=== PATIENT | female | born 1995 | race Hispanic/Latino ===

== ENCOUNTER 2017-10-03 20:43 | Observation (INO) | payer OTHER, SELFPAY ==
--- OUTSIDE RECORDS SUMMARY | 2017-10-03 20:45 | XMS REPORT | Clinical Summary ---
:1995 Author Organization [employer] Address [address] [place] [address] Care Team Providers Name Role Phone Asked, No Pcp Primary Care Provider Unavailable Allergies No Known Allergies Current Medications No known medications Active Problems Problem Noted Date Adjustment disorder with depressed mood 07/27/2016 Social History Tobacco Use Types Packs/Day Years Used Date Never Assessed Sex Assigned at Date Recorded Not on file Last Filed Vital Signs Not on file Plan of Treatment Not on file Results Not on fileafter 10/02/2016 Insurance Payer Benefit Plan / Group Subscriber ID Type Phone Address MEDICAID MEDICAID xxxxxxxxx Medicaid Home: [address] [phone] [place], [place] [id number]
[2017-10-03 21:19] LABS: Absolute Neutrophil 7.2 K/uL (1.8-8.0); Basophils % 0.9 % (0-1.3); Eosinophils % 3.8 % (0-4.4); Hematocrit 34.4 % (36.0-45.0); Lymphocytes % 25.7 % (15.3-44.8); MCH 27.7 pg (27.0-35.0); MCV 81.5 fL (80-100); MPV 9.3 fL (7.6-11.3); Monocytes % 8.8 % (3.3-12.3); RBC Red Blood Cell Count 4.22 M/uL (3.86-4.86)
[2017-10-03 21:24] LABS: Urine Blood 3+ (NEG); Urine Glucose NEGATIVE (NEG); Urine Protein NEGATIVE (NEG); Urine pH 6.5 (5.0-7.0)
[2017-10-03 21:29] LABS: Urine Bacteria <20 /HPF (<20); Urine Culture Reflex Order REFLEXED
--- NOTE | 2017-10-03 21:45 | RAD REPORT ---
EXAM DESCRIPTION: US - OB Limited - 10/03/2017 9:28 pm CLINICAL HISTORY: Vaginal bleeding, positive Preliminary findings provided at the time of the study. COMPARISON: No relevant comparison FINDINGS: An intrauterine gestational sac is present slightly irregular in configuration. pole is identified. The crown-rump length corresponds to a 10 week 2 day age. No gross anatomic abnormali ty is seen. However, prolonged sonographic evaluation failed to identify any cardiac activity. No hem atoma or mass within the uterus. No suspicious ovarian or adnexal finding. No blood or free fluid in the cul-de-sac. IMPRESSION: Intrauterine demise. pole is 10 week 2 day size. No mass or hematoma within the uterus.
[2017-10-03 21:54] LABS: BUN Blood Urea Nitrogen 9 mg/dL (7-18); Bicarbonate 26 mmol/L (21-32); Glucose Level 78 mg/dL (74-106); HCG, Quantitative 5953 mIU/mL (1-3); Potassium 3.5 mmol/L (3.5-5.1); Sodium Level 138 mmol/L (136-145)
--- NOTE | 2017-10-03 22:22 | ER ---
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 pt c/o heavy ak1 bleeding with clots started this morning. 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 Transition of care: patient was not received from another setting of care. Onset of symptoms is unknown. Risk Assessment: Do you want to hurt yourself or someone else? Patient reports no desire to harm self or others. Initial Sepsis Screen: Does the patient meet any 2 criteria? No. Patient's initial sepsis screen is negative. Does the patient have a suspected source of infection? No. Patient's initial sepsis screen is negative. 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 Magallon, pt has not seen him yet. Care prior to arrival: None. 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 - Social history:: Smoking status: Patient/guardian denies using tobacco. - Ebola Screening: : No symptoms or risks identified at this time. - Family history:: not pertinent. - Hospitalizations: : No recent hospitalization is reported. Screenin:54 Abuse screen: Denies threats or abuse. Denies injuries from another. Nutritional ak1 screening: No deficits noted. Tuberculosis screening: No symptoms or risk factors identified. Fall Risk None identified. Assessment: 21:00 General: Appears in no apparent distress. comfortable, Behavior is calm, cooperative, aa1 appropriate for age. Pain: Complains of pain in suprapubic area Quality of pain is described as crampy. Neuro: Level of Consciousness is awake, alert, obeys commands, Oriented to person, place, time, situation, Moves all extremities. Full function Gait is steady. Respiratory: Airway is patent Respiratory effort is even, unlabored, Respiratory pattern is regular, symmetrical. GI: No signs and/or symptoms were reported involving the gastrointestinal system. : Reports cramping, vaginal bleeding that is with clots. EENT: No signs and/or symptoms were reported regarding the EENT system. Derm: Skin is intact, is healthy with good turgor. Musculoskeletal: Circulation, motion, and sensation intact. Capillary refill < 3 seconds. 22:26 Reassessment: Patient appears in no apparent distress at this time. Patient and/or aa1 family updated on plan of care and expected duration. Pain level reassessed. Patient is alert, oriented x 3, equal unlabored respirations, skin warm/dry/pink. Pt awaiting consult from Dr. Phelan. 23:44 Reassessment: Patient appears in no apparent distress at this time. Patient is alert, aa1 oriented x 3, equal unlabored respirations, skin warm/dry/pink. Discussed d/c \T\ f/u instructions with pt; denies questions or concerns at this time. Vital Signs: 20:53 BP 137 / 83; Pulse 71; Resp 18; Temp 98.2; Pulse Ox 97% on R/A; Weight 54.43 kg (R); ak1 Height 5 ft. 0 in. (152.40 cm) (R); Pain 4/10; 22:26 BP 108 / 89; Pulse 64; Resp 16; Pulse Ox 100% on R/A; aa1 23:44 BP 126 / 80; Pulse 66; Resp 16; Pulse Ox 99% on R/A; aa1 20:53 Body Mass Index 23.44 (54.43 kg, 152.40 cm) ak1 ED Course: 20:47 Patient arrived in ED. al2 20:47 Domenic Magallon MD is Private Physician. al2 20:53 Triage completed. ak1 20:53 Arm band placed on Patient placed in an exam room, on a stretcher, Patient notified of ak1 wait time. 20:54 Patient has correct armband on for positive identification. Placed in gown. Bed in low ak1 position. Call light in reach. Side rails up X 1. Adult w/ patient. 20:55 Juanito Freeman MD is Attending Physician. rn 20:58 Leeanne Obregon RN is Primary Nurse. aa1 21:00 Initial lab(s) drawn, by me, sent to lab. Urine collected: clean catch specimen, aa1 cloudy. Inserted saline lock: 20 gauge in right antecubital area, using aseptic technique. Blood collected. 21:28 US OB Limited In Process Unspecified. EDMS 22:05 Assist provider with pelvic exam: Performed by Juanito Freeman MD Patient tolerated well. ak1 manual exam only. 22:21 Shalini Phelan MD is Hospitalizing Provider. rn 22:58 Domenic Magallon MD is Referral Physician. rn 23:44 IV discontinued, intact, bleeding controlled, No redness/swelling at site. Pressure aa1 dressing applied. Administered Medications: 23:44 Drug: Cytotec 400 mcg Route: PO; aa1 23:44 Follow up: Response: Medication administered at discharge. aa1 Outcome: 22:21 Decision to Hospitalize by Provider. rn 22:59 Discharge ordered by . rn 23:44 Discharged to home ambulatory, with significant other. aa1 23:44 Condition: good 23:44 Discharge instructions given to patient, significant other, Instructed on discharge instructions, follow up and referral plans. Demonstrated understanding of instructions, follow-up care. 23:46 Patient left the ED. aa1 Signatures: Dispatcher [employer] EDMS Leeanne Obregon, RN RN aa1 Juanito Freeman MD MD rn Krenek, Amber RN RN [email or web address] Shanta Berumen2
--- NOTE | 2017-10-03 22:22 | EDPHYS ---
Physician Documentation [facility] Name: Danita Drummond Age: 21 yrs Sex: Female : 1995 Arrival Date: 10/03/2017 Time: 20:47 Bed 13 Private MD: Domenic Magallon B ED Physician Juanito Freeman HPI: 10/03 21:52 This 21 yrs old Female presents to ER via Ambulatory with complaints of 19 rn WEEKS PREG VAGINAL BLEEDING,CRAMPING. 21:52 The patient presents to the emergency department with abdominal pain, of the suprapubic rn area, that started 4 day(s) ago, described as crampy, vaginal bleeding, that is moderate, with clots. The estimated gestational age is 19 weeks. course: care: none, Leakage of Fluid: none appreciated, Ultrasound: the patient has not had an ultrasound, Risk/complications: no obvious risks or complications are appreciated. Previous pregnancies: in previous pregnancies patient has had vaginal delivery. The patient has not experienced similar symptoms in the past. Reports base on LMP 19 weeks preg, noticed vaginal bleeding with clots and abd cramping for 4 days, , no trauma, no urinary symptoms. . 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 - Social history:: Smoking status: Patient/guardian denies using tobacco. - Ebola Screening: : No symptoms or risks identified at this time. - Family history:: not pertinent. - Hospitalizations: : No recent hospitalization is reported. ROS: 21:52 Constitutional: Negative for fever, chills, and weight loss, Eyes: Negative for injury, rn pain, redness, and discharge, Cardiovascular: Negative for chest pain, palpitations, and edema, Respiratory: Negative for shortness of breath, cough, wheezing, and pleuritic chest pain, Abdomen/GI: + abd carmping, no vomiting/diarrhea Back: Negative for injury and pain, MS/Extremity: Negative for injury and deformity, Skin: Negative for injury, rash, and discoloration, Neuro: Negative for headache, weakness, numbness, tingling, and seizure. Exam: 21:52 Constitutional: This is a well developed, well nourished patient who is awake, alert, rn and in no acute distress. Abdomen/GI: soft, mild lower abd tenderness, no rebound Pelvic Exam: Normal external genitalia. Minimal amount of blood in vault, os open only approx 1-2 cm. MS/ Extremity: Pulses equal, no cyanosis. Neurovascular intact. Full, normal range of motion. Equal circumference. Neuro: Awake and alert, GCS 15, oriented to person, place, time, and situation. Cranial nerves II-XII grossly intact. Motor strength 5/5 in all extremities. Sensory grossly intact. Cerebellar exam normal. Normal gait. Vital Signs: 20:53 BP 137 / 83; Pulse 71; Resp 18; Temp 98.2; Pulse Ox 97% on R/A; Weight 54.43 kg (R); ak1 Height 5 ft. 0 in. (152.40 cm) (R); Pain 4/10; 22:26 BP 108 / 89; Pulse 64; Resp 16; Pulse Ox 100% on R/A; aa1 23:44 BP 126 / 80; Pulse 66; Resp 16; Pulse Ox 99% on R/A; aa1 20:53 Body Mass Index 23.44 (54.43 kg, 152.40 cm) ak1 MDM: 20:55 Patient medically screened. rn 22:13 ED course: Consulted Dr. Phelan, regarding likely need for D\T\C given intrauterine rn demise and cervical os 1-2 cm. No sign of infection at this time.. 22:20 Differential diagnosis: missed , demise. Data reviewed: vital signs, rn nurses notes, lab test result(s), radiologic studies, ultrasound, and as a result, I will admit patient. Counseling: I had a detailed discussion with the patient and/or guardian regarding: the historical points, exam findings, and any diagnostic results supporting the discharge/admit diagnosis, lab results, radiology results, the need for further work-up and treatment in the hospital. 22:57 ED course: Dr. Phelan evaluated patient in ER, patient changed their mind, doesn't want document review attorney, wants to go home with trial of passage. . 10/03 20:56 Order name: Quantitative Hcg; Complete Time: 21:58 rn 10/03 20:56 Order name: Abo/rh Typing; Complete Time: 22:07 rn 10/03 20:56 Order name: Basic Metabolic Panel; Complete Time: 21:58 rn 10/03 20:56 Order name: CBC with Diff; Complete Time: 21:46 rn 10/03 20:56 Order name: Urine Microscopic Only; Complete Time: 21:46 rn 10/03 21:19 Order name: Urine Dipstick--Ancillary (enter results); Complete Time: 21:46 ms 10/03 20:56 Order name: IV Saline Lock; Complete Time: 21:13 rn 10/03 20:56 Order name: Labs collected and sent; Complete Time: 21:13 rn 10/03 20:56 Order name: NPO; Complete Time: 20:59 rn 10/03 20:56 Order name: Urine Dipstick-Ancillary (obtain specimen); Complete Time: 21:13 rn 10/03 20:56 Order name: US OB Limited; Complete Time: 21:46 rn 10/03 21:19 Order name: Urine --Ancillary (enter results); Complete Time: 21:46 ms 10/03 21:30 Order name: Urine Culture EDMS Administered Medications: 23:44 Drug: Cytotec 400 mcg Route: PO; aa1 23:44 Follow up: Response: Medication administered at discharge. aa1 Disposition: 10/03/17 22:59 Discharged to Home. Impression: Missed . - Condition is Stable. - Medication Reconciliation Form, Thank You Letter, Antibiotic Education, Prescription Opioid Use form. - Follow up: Domenic Magallon MD; When: 2 - 3 days; Reason: Recheck today's complaints, Continuance of care, Re-evaluation by your physician. - Problem is new. - Symptoms are unchanged. Signatures: Dispatcher [employer] EDMS Pam Moseley RN RN mw Kern, Alissa RN RN aa1 Juanito Freeman MD MD rn Krenek, Amber, RN RN ak1 Corrections: (The following items were deleted from the chart) 22:21 21:52 Constitutional: This is a well developed, well nourished patient who is awake, rn alert, and in no acute distress. Abdomen/GI: soft, mild lower abd tenderness, no rebound MS/ Extremity: Pulses equal, no cyanosis. Neurovascular intact. Full, normal range of motion. Equal circumference. Neuro: Awake and alert, GCS 15, oriented to person, place, time, and situation. Cranial nerves II-XII grossly intact. Motor strength 5/5 in all extremities. Sensory grossly intact. Cerebellar exam normal. Normal gait. rn 22:27 22:21 Hospitalization Ordered by Shalini Phelan MD for Observation. Preliminary diagnosis mw is Missed ; Demise. [facility]. Status is Observation. Condition is Stable. Problem is an ongoing problem. Symptoms are unchanged. UTI on Admission? No. rn 22:58 22:27 10/03/2017 22:21 Hospitalization Ordered by Shalini Phelan MD for Observation. rn Preliminary diagnosis is Missed ; Demise. Bed requested for [facility]. Status is Observation. Condition is Stable. Problem is an ongoing problem. Symptoms are unchanged. UTI on Admission? No. mw 23:46 22:59 10/03/2017 22:59 Discharged to Home. Impression: Missed . Condition is aa1 Stable. Forms are Medication Reconciliation Form, Thank You Letter, Antibiotic Education, Prescription Opioid Use. Follow up: Domenic Magallon; When: 2 - 3 days; Reason: Recheck today's complaints, Continuance of care, Re-evaluation by your physician. Problem is new. Symptoms are unchanged. rn
[2017-10-03] MEDS ORDERED: miSOPROStol 100 MCG TAB ONE (23:17)
[2017-10-03 23:52] VITALS: TEMP 98.2
[2017-10-03 23:55] VITALS: BP 126/80; O2SAT 99
--- NOTE | 2017-10-04 03:01 | CON ---
History Of Present Illness: Danita is a 21-year-old, 3, para 2-0-0-2, LMP 05/22/2017, whic lydia would make her 19 weeks and 2 days gestation, who presents to the emergency room with vaginal bleed ing that began about a week ago and presented with some blood clots this morning. She also started h aving abdominal cramps about an hour ago, that is the time when she called Labor and Delivery, asking for advice as to what to do and was recommended to come to the emergency room. The patient states t hat her prior pregnancies have been managed by Dr. Magallon; however, she has not seen him yet for this . She states it is due to some insurance issues. I have notified Dr. Magallon. The patient s tates aside from the bleeding and the cramps that she has no other issues. She denies fevers or chil ls. No shortness of breath. No headache. No dizziness. She is overall feeling well. 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 Past Medical History: Negative. Medications: She is not taking any medications. Past Surgical History: Two prior vaginal births. Family History: Noncontributory. Review of Systems: Constitutional: Negative for fever, chills, or weight loss. No visual changes. Cardiovascular: No chest pains or palpitation. Respiratory: No shortness of breath, cough, or wheezing. Abdomen: Terese vasquez has some cramping. No vomiting or diarrhea. Musculoskeletal: No issues. Skin: No rashes or inj ury. Neurologic: No headaches, weakness, numbness, or dizziness. Physical Examination: Vital Signs: Blood pressure is 108/89, pulse of 64, respirations 16, pulse O2 is 100%. She is afebr ile. Temperature of 98.2. BMI is 23.4. General: Resting comfortably in bed. She is distressed due to the news of having a miscarriage. Head and Neck: Normocephalic and atraumatic. Heart: Regular rate. Respiratory: Symmetric nonlabored breathing. Abdomen: Soft, nontender, nondistended. Extremities: Bilateral lower extremities, no clubbing, cyanosis, or edema. Vaginal Exam: Normal external female genitalia. Vagina is pink, moist, normal rugae. Cervix is pat sed. There is some minimal amount of blood noted in the cervical os with some mucus. Uterus is nont abdias. Adnexa, no palpable adnexal masses. Imaging Data: A transvaginal ultrasound has been performed. Findings indicated intrauterine gestati onal sac measuring 10 weeks and 2 days. No heart rate visible corresponding to an intrauterine demise. No adnexal masses. Laboratory Findings: White blood cell count is 11.9, hemoglobin is 11.7, hematocrit 34.4, platelet c ount is 287. hCG is 5953. Urine is negative for nitrites. Assessment And Plan: Danita is a 21-year-old 3, para 2-0-0-2, who presents with a spontane ous . The patient states that at this time she does not desire surgical intervention. She d eclines having a D and C performed. She would like expected management. I offered her the option to have a dose of misoprostol while she is here at the hospital to help assist with miscarriage and the patient states that she would like to do this. The patient was given the precautions to return in [facility] emergency room for severe bleeding or fevers or chills. She [facility] also [facility] a followup visit to have a repeat ultrasound performed in the office in 1-2 weeks to confirm completion of miscarriage. If she has any other issues, she is to notify the [facility] ency room. SULEMAN Voice ID: [id number] Report ID: [id number]
== END 2017-10-03 23:00 | disposition home or self-care (01) ==
LOC: ER 20:43 → ERHOLD 22:29
PROVIDERS: ADMIT Student in an Organized Health Care Education/Training Program; ATTEND Student in an Organized Health Care Education/Training Program
DX: O03.9 Complete or unspecified spontaneous abortion without complication (principal)
CPT/HCPCS: 36415; 76815; 80048; 81003; 81015; 81025; 84702; 85025; 86900; 86901; 87086; 87088; 99284; G0378

== ENCOUNTER 2018-09-28 23:37 | Inpatient (IN) | payer OTHER ==
--- OUTSIDE RECORDS SUMMARY | 2018-09-28 23:40 | XMS REPORT | Clinical Summary ---
:1995 Author Organization [employer] Address [address] [place] [address] Care Team Providers Name Role Phone Asked, No Pcp Primary Care Provider Unavailable Allergies No Known Allergies Medications No known medications Active Problems Problem Noted Date Adjustment disorder with depressed mood 07/27/2016 Social History Tobacco Use Types Packs/Day Years Used Date Never Assessed Sex Assigned at Date Recorded Not on file Job Start Date Occupation Industry Not on file Not on file Not on file Travel History Travel Start Travel End No recent travel history available. Last Filed Vital Signs Not on file Plan of Treatment Not on file Results Not on fileafter 09/27/2017 Advance Directives Patient has advance care planning documents, and code status on file. For more information, please contact:[id number] [place] [address] Code Status Date Activated Date Inactivated Comments Full Code 07/27/2016 2:48 PM 07/28/2016 4:54 PM Code Status decision reached by: Patient
[2018-09-28] MEDS ORDERED: Ringers Lactate 1,000 ML IV SCH (23:45)
[2018-09-28] MEDS ORDERED: PENICILLIN 5 MU in NA CHLORIDE 0.9% 100 ML IV ONE (23:54)
[2018-09-28] MEDS ORDERED: METHYLERGONOVINE 0.2MG/ML AMP IM PRN (23:54)
[2018-09-28] MEDS ORDERED: PROMETHAZINE 25 MG/ML VIAL IM PRN (23:54)
[2018-09-28] MEDS ORDERED: Ringers Lactate 1,000 ML IV PRN (23:54)
[2018-09-28] MEDS ORDERED: BUTORPHANOL 1 MG/ML INJ IV PRN (23:54)
[2018-09-29 00:59] LABS: RPR Titer ND
[2018-09-29] MEDS ORDERED: ROPIVACAINE HCL 100 ML IV PRN (00:59)
[2018-09-29] MEDS ORDERED: FENTANYL CITR 100 MCG/2 ML IV ONE (00:59)
[2018-09-29] MEDS ORDERED: OXYTOCIN/LR 20 UNIT/1,000 ML BAG IV SCH ×2 (01:00→03:00)
[2018-09-29] MEDS ORDERED: ROPIVACAINE HCL 0.2% 20ML AMP IV ONE (01:00)
[2018-09-29 01:02] LABS: Absolute Lymphocytes (CBC) 2.5 K/uL (0.7-4.9); Basophils % 0.9 % (0-1.3); Eosinophils % 1.3 % (0-4.4); Hematocrit 28.7 % (36.0-45.0); MPV 9.4 fL (7.6-11.3); Monocytes % 7.7 % (3.3-12.3); RBC Red Blood Cell Count 3.73 M/uL (3.86-4.86)
[2018-09-29] MEDS ORDERED: LIDOCAINE 1% MPF 30 ML VIAL ONE (01:42)
[2018-09-29] MEDS ORDERED: ACETAMINOPHEN 500 MG TAB PO PRN (02:41)
[2018-09-29] MEDS ORDERED: METHYLERGONOVINE 0.2 MG TAB PO PRN (02:41)
--- NOTE | 2018-09-29 02:52 | PREOPHP ---
Date of Admission: 09/28/2018 This is a 22-year-old 3, para 2, at 37 weeks in 1 or 2 days, not seen until late in the pregn ariel. Ultrasound was done at 35 weeks and 5 days, very answered and I think the patient is further a long. She usually delivers at 38 weeks. Came in active labor, received 1 dose of 5 million units of penicillin as she was not sure of her beta strep status, even know the records show that she was pos itive for beta strep. Vital signs all stable. Went rapidly to complete. Requested epidural, but pr ecipitously delivered of a term female, Apgars 9 and 9. Right labia minora through and through lacer ation sutured with 2-0 chromic after local infiltration. One [id number] stitch in the left labi a minora. Schultze delivery of the placenta, which inspected and noted to be intact and normal, 350- 400 cc blood loss. Uterus contracted down well with IV drip Pitocin. Final Diagnoses: Term intrauterine , suspected to be 38 weeks plus. Vaginal delivery. Pen icillin prophylaxis. DARRICK/CJ Voice ID: [id number]
[2018-09-29 06:44] VITALS: BMI 25.2
[2018-09-29] MEDS: IBUPROFEN 200 MG TAB PO PRN ×2 (12:23→23:30)
[2018-09-29] MEDS: Oxycodone HCl/Acetaminophen 1 TAB TAB PO PRN (18:57)
[2018-09-29 22:18] LABS: RPR (Rapid Plasma Reagin) NON-REACT (NON-REACT)
[2018-09-30] MEDS: Oxycodone HCl/Acetaminophen 1 TAB TAB PO PRN (06:48)
[2018-09-30] MEDS ORDERED: Tdap (Diph,Pertuss(Acell),Tet Vac) 0.5 ML SYR IMVAC ONE (07:57)
[2018-09-30 09:15] VITALS: BP 115/68; TEMP 97.9
[2018-10-02 03:18] LABS: HBsAG Nonreactive (Nonreactive)
--- NOTE | 2018-10-04 17:39 | OP ---
Surgeon: Domenic Magallon MD A 22-year-old 3, para 2, at 37 weeks 1 day, came in active labor. She was given penicillin p rophylaxis. Went rapidly to complete, precipitous delivery of a term female, Apgars 9 and 9. Small right labia laceration through and through repaired with 2-0 chromic after local infiltration. One f [id number] stitch in the left labia minora. Schultze delivery of the placenta, inspected and not ed to be intact. 350 cc blood loss. Uterus contracted down well with IV drip Pitocin. The patient tolerated all procedures well. Final Diagnoses: Term intrauterine 37-38 weeks, vaginal delivery, penicillin prophylaxis. DARRICK/CJ Voice ID: [id number] Report ID: [id number]
== END 2018-09-30 09:00 | disposition home or self-care (01) | DRG 807 ==
LOC: L&D 23:37 → 2ND-WC 23:58
PROVIDERS: ADMIT Specialist; ATTEND Specialist
PROC: 10E0XZZ Delivery of Products of Conception, External Approach (ICD-10-PCS; principal; 2018-09-28)
PROC: 0UQMXZZ Repair Vulva, External Approach (ICD-10-PCS; 2018-09-28)
DX: O70.0 First degree perineal laceration during delivery (principal); Z37.0 Single live birth; O99.824 Streptococcus B carrier state complicating childbirth; Z3A.37 37 weeks gestation of pregnancy
CPT/HCPCS: 36415; 85025; 86592; 86901; 87340; 90471; 90715; J0595; J2550; J2590

== ENCOUNTER 2020-02-02 09:14 | Emergency (ER) | payer SELFPAY, OTHER ==
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
[2020-02-02 12:21] VITALS: BP 104/58; TEMP 99; O2SAT 99
== END 2020-02-02 12:10 | disposition home or self-care (01) ==
LOC: ER 09:14
DX: S00.90XA Unspecified superficial injury of unspecified part of head, initial encounter (principal); S70.02XA Contusion of left hip, initial encounter; S80.02XA Contusion of left knee, initial encounter; S40.012A Contusion of left shoulder, initial encounter; S00.33XA Contusion of nose, initial encounter; S20.229A Contusion of unspecified back wall of thorax, initial encounter; Y04.2XXA Assault by strike against or bumped into by another person, initial encounter; Y93.9 Activity, unspecified; Y92.009 Unspecified place in unspecified non-institutional (private) residence as the place of occurrence of the external cause
CPT/HCPCS: 70450; 70486; 71046; 72125; 76377; 99284

== ENCOUNTER 2020-10-22 14:37 | Emergency (ER) | payer OTHER, SELFPAY ==
--- NOTE | 2020-10-22 15:58 | ER ---
Nurse's Notes [facility] Name: Danita Drummond Age: 24 yrs Sex: Female : 1995 Arrival Date: 10/22/2020 Time: 14:40 Bed Waiting Private MD: Diagnosis: ED Course: 10/22 14:40 Patient arrived in ED. mr 14:50 Patient's name was called from ER lobby. No response. aa5 15:15 Patient's name was called from ER lobby. No response. aa5 15:35 Patient's name was called from ER lobby. No response. aa5 15:57 Ashok Goetz MD is Attending Physician. aa5 Administered Medications: No medications were administered Outcome: 15:57 Patient left the ED. aa5 Signatures: Noemi DelunaderonSoila, RN RN aa5
== END 2020-10-22 15:57 | disposition left against medical advice (07) ==
LOC: ER 14:37
DX: Z02.9 Encounter for administrative examinations, unspecified (principal)

== ENCOUNTER 2020-10-25 05:43 | Emergency (ER) | payer SELFPAY ==
[2020-10-25 05:59] LABS: Urine Blood Negative (Negative); Urine Glucose Negative (Negative); Urine Protein Negative (Negative); Urine Specific Gravity 1.025 (1.005-1.030); Urine pH 5.5 (5.0-7.0)
[2020-10-25 06:10] LABS: Urine Specific Gravity/Preg 1.025 (1.005-1.030)
[2020-10-25 06:21] LABS: Absolute Lymphocytes (CBC) 1.8 K/uL (0.7-4.9); Hematocrit 36.7 % (36.0-45.0); Lymphocytes % 21.8 % (15.3-44.8); MPV 8.8 fL (7.6-11.3); RBC Red Blood Cell Count 4.11 M/uL (3.86-4.86)
[2020-10-25 06:36] LABS: ALT/SGPT 20 U/L (12-78); AST/SGOT 13 U/L (15-37); Alkaline Phosphatase 68 U/L (45-117); BUN Blood Urea Nitrogen 12 mg/dL (7-18); Bicarbonate 26 mmol/L (21-32); Bilirubin Direct 0.2 mg/dL (0-0.2); Bilirubin Total 0.5 mg/dL (0.2-1.0); Glucose Level 99 mg/dL (74-106); Lipase 53 U/L (73-393); Potassium 3.9 mmol/L (3.5-5.1); Protein, Total 7.2 g/dL (6.4-8.2); Sodium Level 140 mmol/L (136-145)
--- NOTE | 2020-10-25 07:34 | RAD REPORT ---
EXAM DESCRIPTION: CTAbdomen Pelvis W Contrast - 10/25/2020 6:51 am CLINICAL HISTORY: Abdominal pain. ABD PAIN COMPARISON: No comparisons TECHNIQUE: Biphasic CT imaging of the abdomen and pelvis was performed with 100 ml non-ionic IV cont rast. All CT scans are performed using dose optimization technique as appropriate and may include automated exposure control or mA/KV adjustment according to patient size. FINDINGS: The lung bases are clear. The liver, spleen, pancreas, adrenal glands and kidneys are within normal limits. No bowel obstruction, free air, free fluid or abscess. Mild thickening of the wall with colon noted. The appendix is normal. No evidence of significant lymphadenopathy. No suspicious bony findings. IMPRESSION: A mild generalized colitis pattern is suspected.
[2020-10-25] MEDS ORDERED: NA CHLORIDE 0.9% 1,000 ML ONE (07:48)
--- NOTE | 2020-10-25 08:03 | EDPHYS ---
Physician Documentation [facility] Name: Danita Drummond Age: 24 yrs Sex: Female : 1995 Arrival Date: 10/25/2020 Time: 05:47 Bed 5 Private MD: ED Physician Jacky Luu HPI: 10/25 06:37 This 24 yrs old Female presents to ER via Ambulatory with complaints of pm1 Diarrhea, Vomiting, Nausea. 06:37 The patient presents to the emergency department with vomiting, 3 times since the onset pm1 of symptoms, resolved 2 days ago, diarrhea, 2 times since the onset of symptoms, abdominal pain, of the right upper quadrant and left upper quadrant, described as crampy, and does not radiate. Onset: The symptoms/episode began/occurred 3 day(s) ago. Possible causes: unknown. The symptoms are aggravated by nothing. The symptoms are alleviated by nothing. Associated signs and symptoms: Pertinent positives: Sore throat resolved 2 days ago, Pertinent negatives: dysuria, fever. Severity of symptoms: in the emergency department the symptoms are unchanged sore throat, n/v resolved, but diarrhea and feeling dehydrated continued. The patient has not experienced similar symptoms in the past. The patient has not recently seen a physician. Historical: - Allergies: 05:54 No Known Allergies; em - PMHx: 05:54 None; em - PSHx: 05:54 None; em - Immunization history:: Adult Immunizations up to date. - Social history:: Smoking status: Patient denies any tobacco usage or history of. ROS: 06:37 Constitutional: Negative for fever, chills, and weight loss. pm1 06:37 Cardiovascular: Negative for chest pain, palpitations, and edema, Respiratory: Negative for shortness of breath, cough, wheezing, and pleuritic chest pain. 06:37 Back: Negative for injury and pain, : Negative for injury, bleeding, discharge, and swelling, MS/Extremity: Negative for injury and deformity, Skin: Negative for injury, rash, and discoloration, Neuro: Negative for headache, weakness, numbness, tingling, and seizure. 06:37 ENT: Positive for sore throat, resolved, Negative for ear pain. 06:37 Abdomen/GI: Positive for abdominal pain, diarrhea, Negative for nausea and vomiting. 06:37 All other systems are negative. Exam: 06:37 Constitutional: This is a well developed, well nourished patient who is awake, alert, pm1 and in no acute distress. Head/Face: Normocephalic, atraumatic. 06:37 Back: No spinal tenderness. No costovertebral tenderness. Full range of motion. Skin: Warm, dry with normal turgor. Normal color with no rashes, no lesions, and no evidence of cellulitis. MS/ Extremity: Pulses equal, no cyanosis. Neurovascular intact. Full, normal range of motion. 06:37 Eyes: Exam is negative for acute changes, Extraocular movements: no acute changes, Conjunctiva: no acute changes, no injection, Sclera: no acute changes, icterus, is not appreciated. 06:37 ENT: Mouth: Lips: normal, Oral mucosa: normal, pink and intact, moist. 06:37 Cardiovascular: Rate: normal, Rhythm: regular, Pulses: no pulse deficits are appreciated, Heart sounds: normal, normal S1and S2. 06:37 Respiratory: Exam negative for acute changes, respiratory distress, shortness of breath, Breath sounds: are clear throughout. 06:37 Abdomen/GI: Inspection: abdomen appears normal, Palpation: abdomen is soft and non-tender, in all quadrants. 06:37 Neuro: Exam negative for acute changes, Orientation: is normal, Mentation: is normal, Motor: is normal, moves all fours. Vital Signs: 05:59 BP 122 / 73; Pulse 72; Resp 16; Temp 97.7; Pulse Ox 99% on R/A; Weight 54.43 kg; Height em 5 ft. 0 in. (152.40 cm); Pain 7/10; 06:57 BP 108 / 66; Pulse 74; Resp 16; Pulse Ox 97% on R/A; em 07:36 BP 94 / 51; Pulse 65; Resp 16; Pulse Ox 99% ; sv 08:44 BP 93 / 60; Pulse 66; Resp 16; Pulse Ox 99% ; sv 05:59 Body Mass Index 23.44 (54.43 kg, 152.40 cm) em MDM: 06:15 Patient medically screened. pm1 06:37 Data reviewed: vital signs. Data interpreted: Pulse oximetry: on room air is 97 %. pm1 Interpretation: normal. 08:01 Counseling: I had a detailed discussion with the patient and/or guardian regarding: the pm1 historical points, exam findings, and any diagnostic results supporting the discharge/admit diagnosis, lab results, radiology results, the need for outpatient follow up, to return to the emergency department if symptoms worsen or persist or if there are any questions or concerns that arise at home. 10/25 05:59 Order name: Urine Dipstick-Ancillary; Complete Time: 06:09 EDMS 10/25 06:02 Order name: Basic Metabolic Panel; Complete Time: 06:37 em 10/25 06:02 Order name: CBC with Diff; Complete Time: 06:37 em 10/25 06:02 Order name: Hepatic Function; Complete Time: 06:37 em 10/25 06:02 Order name: Lipase; Complete Time: 06:37 em 10/25 06:05 Order name: Urine --Ancillary (enter results); Complete Time: 06:17 tt3 10/25 06:02 Order name: IV Saline Lock; Complete Time: 06:07 em 10/25 06:02 Order name: Labs collected and sent; Complete Time: 06:07 em 10/25 06:05 Order name: Urine Test (obtain specimen); Complete Time: 06:06 tt3 18 06:16 Order name: CT Abd/Pelvis - IV Contrast Only; Complete Time: 07:38 pm1 Administered Medications: 07:30 Drug: NS 0.9% 1000 ml Route: IV; Rate: 1000 ml; Site: right antecubital; sv 08:30 Follow up: Response: No adverse reaction; IV Status: Completed infusion; IV Intake: sv 1000ml 07:55 Drug: Flagyl (metroNIDAZOLE) 500 mg Volume: 100 ml; Route: IVPB; Rate: 200 ml/hr; ph Infused Over: 30 mins; Site: right antecubital; 08:46 Follow up: Response: No adverse reaction; IV Status: Completed infusion; IV Intake: sv 100ml 07:55 Drug: Cipro (ciprofloxacin) 500 mg Route: PO; ph 08:45 Follow up: Response: No adverse reaction sv 08:42 Drug: Bentyl (dicyclomine) 20 mg Route: PO; sv 08:46 Follow up: Response: Medication administered at discharge. sv Disposition Summary: 10/25/20 08:02 Discharge Ordered Location: Home pm1 Problem: new pm1 Symptoms: have improved pm1 Condition: Stable pm1 Diagnosis - Colitis pm1 Followup: pm1 - With: Emergency Department - When: As needed - Reason: Worsening of condition Followup: pm1 - With: Private Physician - When: 2 - 3 days - Reason: Recheck today's complaints, Continuance of care, Re-evaluation by your physician Discharge Instructions: - Discharge Summary Sheet pm1 - Colitis pm1 Forms: - Medication Reconciliation Form pm1 - Thank You Letter pm1 - Antibiotic Education pm1 - Prescription Opioid Use pm1 - Work release form eb Prescriptions: - Flagyl 500 mg Oral Tablet - take 1 tablet by ORAL route every 8 hours for 10 days; 30 tablet; Refills: 0, pm1 Product Selection Permitted - Cipro 500 mg Oral Tablet - take 1 tablet by ORAL route every 12 hours for 10 days; 20 tablet; Refills: 0, pm1 Product Selection Permitted - dicyclomine 20 mg Oral Tablet - take 1 tablet by ORAL route every 8 hours As needed; 20 tablet; Refills: 0, pm1 Product Selection Permitted - ondansetron 4 mg Oral tablet,disintegrating - place 1 tablet by TRANSLINGUAL route every 8 hours As needed; 12 tablet; pm1 Refills: 0, Product Selection Permitted Signatures: Dispatcher [employer] Beth Acosta RN RN sv Munoz, Edgar, RN RN em Hall, Patricia, RN RN ph Marinas, Patrick, DONY EDITOR MANAGING NEWSPAPER pm1 Cris, Martín tt3
--- NOTE | 2020-10-25 08:03 | ER ---
Nurse's Notes [facility] Name: Danita Drummond Age: 24 yrs Sex: Female : 1995 Arrival Date: 10/25/2020 Time: 05:47 Bed 5 Private MD: Diagnosis: Colitis Presentation: 10/25 05:53 Chief complaint: Patient states: N/V/D for a few days, feels dehydrated. Coronavirus em screen: Client denies travel out of the [place] in the last 14 days. Ebola Screen: Patient negative for fever greater than or equal to 101.5 degrees Fahrenheit, and additional compatible Ebola Virus Disease symptoms Patient denies exposure to infectious person. Patient denies travel to an Ebola-affected area in the 21 days before illness onset. No symptoms or risks identified at this time. Risk Assessment: Do you want to hurt yourself or someone else? Patient reports no desire to harm self or others. Onset of symptoms was October 25, 2020. 05:53 Method Of Arrival: Ambulatory em 05:53 Acuity: JR 3 em 05:53 Initial Sepsis Screen: Does the patient meet any 2 criteria? No. Patient's initial em sepsis screen is negative. Does the patient have a suspected source of infection? No. Patient's initial sepsis screen is negative. Historical: - Allergies: 05:54 No Known Allergies; em - PMHx: 05:54 None; em - PSHx: 05:54 None; em - Immunization history:: Adult Immunizations up to date. - Social history:: Smoking status: Patient denies any tobacco usage or history of. Screenin:55 Abuse screen: Denies threats or abuse. Nutritional screening: No deficits noted. em Tuberculosis screening: No symptoms or risk factors identified. Fall Risk None identified. Assessment: 06:01 General: Appears in no apparent distress. comfortable, Behavior is calm, cooperative, em Denies fever. Pain: Complains of pain in right upper quadrant and left upper quadrant Pain currently is 7 out of 10 on a pain scale. Neuro: Level of Consciousness is awake, alert, obeys commands, Oriented to person, place, time, situation. Cardiovascular: Capillary refill < 3 seconds Patient's skin is warm and dry. Respiratory: Airway is patent Respiratory effort is even, unlabored, Respiratory pattern is regular, symmetrical. GI: Abdomen is flat, Reports diarrhea, nausea, vomiting. Derm: Skin is intact, is healthy with good turgor, Skin is pink, warm \T\ dry. Musculoskeletal: Capillary refill < 3 seconds, Range of motion: intact in all extremities. 06:54 Reassessment: returned from CT. em 07:30 Reassessment: Patient appears in no apparent distress at this time. Patient and/or sv family updated on plan of care and expected duration. Pain level reassessed. Patient is alert, oriented x 3, equal unlabored respirations, skin warm/dry/pink. c/o fatigue. 08:12 Reassessment: Pt up for discharge but is receiving Flagyl at this time. Will be sv discharged after its done. 08:45 Reassessment: Patient appears in no apparent distress at this time. Patient and/or sv family updated on plan of care and expected duration. Pain level reassessed. Patient is alert, oriented x 3, equal unlabored respirations, skin warm/dry/pink. Vital Signs: 05:59 BP 122 / 73; Pulse 72; Resp 16; Temp 97.7; Pulse Ox 99% on R/A; Weight 54.43 kg; Height em 5 ft. 0 in. (152.40 cm); Pain 7/10; 06:57 BP 108 / 66; Pulse 74; Resp 16; Pulse Ox 97% on R/A; em 07:36 BP 94 / 51; Pulse 65; Resp 16; Pulse Ox 99% ; sv 08:44 BP 93 / 60; Pulse 66; Resp 16; Pulse Ox 99% ; sv 05:59 Body Mass Index 23.44 (54.43 kg, 152.40 cm) em ED Course: 05:47 Patient arrived in ED. cf2 05:53 Alexx Veronica, RN is Primary Nurse. em 05:54 Triage completed. em 05:55 Arm band placed on. em 05:55 Patient has correct armband on for positive identification. Placed in gown. Bed in low em position. Call light in reach. Pulse ox on. NIBP on. 06:00 Inserted saline lock: 22 gauge in right antecubital area, using aseptic technique. ds4 Blood collected. 06:09 Kapil Contreras NP is PHCP. pm1 06:09 Jacky Luu MD is Attending Physician. pm1 06:51 CT Abd/Pelvis - IV Contrast Only In Process Unspecified. EDMS 07:36 Primary Nurse role handed off by Alexx Veronica RN sv 07:36 Beth Vail RN is Primary Nurse. sv 08:45 No provider procedures requiring assistance completed. IV discontinued, intact, sv bleeding controlled, No redness/swelling at site. Pressure dressing applied. Administered Medications: 07:30 Drug: NS 0.9% 1000 ml Route: IV; Rate: 1000 ml; Site: right antecubital; sv 08:30 Follow up: Response: No adverse reaction; IV Status: Completed infusion; IV Intake: sv 1000ml 07:55 Drug: Flagyl (metroNIDAZOLE) 500 mg Volume: 100 ml; Route: IVPB; Rate: 200 ml/hr; ph Infused Over: 30 mins; Site: right antecubital; 08:46 Follow up: Response: No adverse reaction; IV Status: Completed infusion; IV Intake: sv 100ml 07:55 Drug: Cipro (ciprofloxacin) 500 mg Route: PO; ph 08:45 Follow up: Response: No adverse reaction sv 08:42 Drug: Bentyl (dicyclomine) 20 mg Route: PO; sv 08:46 Follow up: Response: Medication administered at discharge. sv Intake: 08:30 IV: 1000ml; Total: 1000ml. sv 08:46 IV: 100ml; Total: 1100ml. sv Outcome: 08:02 Discharge ordered by MD. pm1 08:45 Discharged to home ambulatory. sv 08:45 Condition: stable 08:45 Discharge instructions given to patient, Instructed on discharge instructions, follow up and referral plans. medication usage, Demonstrated understanding of instructions, follow-up care, medications, Prescriptions given X 4. 08:45 Patient left the ED. sv Signatures: Dispatcher [employer] Beth Acosta RN RN Alexx Veronica RN RN em Swanson, Donovan ds4 Sharlene Verdugo RN RN Kapil Contreras, DONY CAD DEVELOPER pm1 Peggy Williamson cf2
[2020-10-25] MEDS ORDERED: CIPROFLOXACIN HCL 500 MG TAB ONE (08:09)
[2020-10-25] MEDS ORDERED: METRONIDAZOLE 500mg IVPB 500 MG/100 ML BAG IV ONE (08:09)
[2020-10-25 08:52] VITALS: TEMP 97.7
[2020-10-25 08:55] VITALS: O2SAT 99
[2020-10-25 08:57] VITALS: BP 93/60
[2020-10-25] MEDS ORDERED: DICYCLOMINE HCL 10 MG CAP ONE (08:58)
== END 2020-10-25 08:45 | disposition home or self-care (01) ==
LOC: ER 05:43
DX: K52.9 Noninfective gastroenteritis and colitis, unspecified (principal)
CPT/HCPCS: 36415; 74177; 80048; 80076; 81003; 81025; 83690; 85025; 96365; 99284; J7030; Q9967

== ENCOUNTER 2021-01-11 09:51 | Emergency (ER) | payer SELFPAY ==
--- NOTE | 2021-01-11 10:12 | ER ---
Nurse's Notes [facility] Name: Danita Drummond Age: 25 yrs Sex: Female : 1995 Arrival Date: 01/11/2021 Time: 09:54 Bed Waiting Private MD: Diagnosis: Periapical abscess without sinus Presentation: 01/11 10:09 Chief complaint: Right upper molar and right jaw pain x 2 weeks, sinus congestion hb today. Coronavirus screen: At this time, the client does not indicate any symptoms associated with coronavirus-19. Ebola Screen: No symptoms or risks identified at this time. Initial Sepsis Screen: Does the patient meet any 2 criteria? No. Patient's initial sepsis screen is negative. Does the patient have a suspected source of infection? No. Patient's initial sepsis screen is negative. Risk Assessment: Do you want to hurt yourself or someone else? Patient reports no desire to harm self or others. Onset of symptoms was January 11, 2021. 10:09 Method Of Arrival: Ambulatory hb 10:09 Acuity: JR 4 hb Triage Assessment: 10:12 General: Appears in no apparent distress. uncomfortable, Behavior is calm, cooperative. hb Pain: Pain currently is 10 out of 10 on a pain scale. Neuro: Level of Consciousness is awake, alert, obeys commands, Oriented to person, place, time, situation. Cardiovascular: Patient's skin is warm and dry. Respiratory: Reports sinus congestion Respiratory effort is even, unlabored, Respiratory pattern is regular, symmetrical. Historical: - Allergies: 10:12 No Known Drug Allergies; hb - Immunization history:: Adult Immunizations up to date. - Social history:: Smoking status: Patient denies any tobacco usage or history of. Screenin:13 Abuse screen: Denies threats or abuse. Denies injuries from another. Nutritional hb screening: No deficits noted. Tuberculosis screening: No symptoms or risk factors identified. Fall Risk None identified. Assessment: 10:12 General: see triage . hb Vital Signs: 10:09 BP 132 / 80; Pulse 98; Resp 16; Temp 98; Pulse Ox 99% ; Pain 10/10; hb ED Course: 09:54 Patient arrived in ED. mr 09:57 Kalani Cano FNP-C [facility] kb 09:57 Juanito Freeman MD is Attending Physician. kb 10:12 Triage completed. hb 10:12 Arm band placed on. hb 10:13 Patient has correct armband on for positive identification. hb 10:13 No provider procedures requiring assistance completed. Patient did not have IV access hb during this emergency room visit. Administered Medications: No medications were administered Outcome: 10:11 Discharge ordered by . kb 10:13 Discharged to home ambulatory. hb 10:13 Condition: stable 10:13 Discharge instructions given to patient, Instructed on discharge instructions, follow up and referral plans. medication usage, Demonstrated understanding of instructions, follow-up care, medications, Prescriptions given X 1. 10:14 Patient left the ED. hb Signatures: Kalani Cano, LUIS-C TISSUE TECHNOLOGIST-Noemi Castellano mr Gila Guerrero, RN RN hb
--- NOTE | 2021-01-11 10:12 | EDPHYS ---
Physician Documentation [facility] Name: Danita Drummond Age: 25 yrs Sex: Female : 1995 Arrival Date: 01/11/2021 Time: 09:54 Bed Waiting Private MD: ED Physician Juanito Freeman HPI: 01/11 11:07 This 25 yrs old Female presents to ER via Ambulatory with complaints of Fever, kb Breathing Difficulty. 11:07 The patient has not experienced similar symptoms in the past. kb 11:07 The patient presents with pain, redness, swelling. The problem is located in the lower kb right second molar (#31). Onset: The symptoms/episode began/occurred 2 week(s) ago. Duration: The symptoms are continuous. Modifying factors: The symptoms are alleviated by nothing, the symptoms are aggravated by nothing. Associated signs and symptoms: Pertinent positives: fever, pain, redness in area, swelling. Severity of symptoms: At their worst the symptoms were moderate, in the emergency department the symptoms are unchanged. The patient has not recently seen a physician. Pt reports tooth pain that radiates down right side of neck. STates the pain started 2 weeks ago, but recently she started running fever as well. States she woke up this morning with nasal congestion so she couldn't breathe out of her nose. States she tested for covid on Monday and was negative. Historical: - Allergies: 10:12 No Known Drug Allergies; hb - Immunization history:: Adult Immunizations up to date. - Social history:: Smoking status: Patient denies any tobacco usage or history of. ROS: 11:06 Respiratory: Negative for shortness of breath, cough, wheezing, and pleuritic chest kb pain. 11:06 Constitutional: Positive for fever, Negative for body aches, chills, fatigue, malaise, poor PO intake, weight loss. 11:06 ENT: Positive for dental pain, sinus congestion. 11:06 All other systems are negative. Exam: 11:06 Constitutional: This is a well developed, well nourished patient who is awake, alert, kb and in no acute distress. Head/Face: Normocephalic, atraumatic. ENT: Moist Mucous membranes Neck: Trachea midline, no thyromegaly or masses palpated, and no cervical lymphadenopathy. Supple, full range of motion without nuchal rigidity, or vertebral point tenderness. No Meningismus. Cardiovascular: Regular rate and rhythm with a normal S1 and S2. No gallops, murmurs, or rubs. No pulse deficits. Respiratory: Respirations even and unlabored. No increased work of breathing, no retractions or nasal flaring. Skin: Warm, dry with normal turgor. Normal color. MS/ Extremity: Pulses equal, no cyanosis. Neurovascular intact. Full, normal range of motion. Neuro: Awake and alert, GCS 15, oriented to person, place, time, and situation. Moves all extremities. Normal gait. Psych: Awake, alert, with orientation to person, place and time. Behavior, mood, and affect are within normal limits. 11:06 ENT: Ear canal(s): are normal, TM's: are normal, Nose: is normal, Posterior pharynx: is normal, Dental exam: abscess, that is mild, specifically in the lower right second molar (#31), pain, that is moderate, specifically in the lower right second molar (#31). Vital Signs: 10:09 BP 132 / 80; Pulse 98; Resp 16; Temp 98; Pulse Ox 99% ; Pain 10/10; hb MDM: 10:11 Patient medically screened. kb 11:05 Data reviewed: vital signs, nurses notes. Data interpreted: Pulse oximetry: on room air kb is 99 %. Interpretation: normal. Counseling: I had a detailed discussion with the patient and/or guardian regarding: the historical points, exam findings, and any diagnostic results supporting the discharge/admit diagnosis, the need for outpatient follow up, a dentist, to return to the emergency department if symptoms worsen or persist or if there are any questions or concerns that arise at home. 17:27 Differential diagnosis: dental caries, dental abscess. kb Administered Medications: No medications were administered Disposition: 12:52 Co-signature as Attending Physician, Juanito Freeman MD I agree with the assessment and rn plan of care. Attestation: The patient's history, exam findings, diagnostics, and a summary of any interventions or procedures was reviewed in detail with Kalani PABLO. Disposition Summary: 01/11/21 10:11 Discharge Ordered Location: Home kb Condition: Stable kb Diagnosis - Periapical abscess without sinus kb Followup: kb - With: Emergency Department - When: As needed - Reason: Worsening of condition Followup: kb - With: Private Physician - When: 2 - 3 days - Reason: Recheck today's complaints, Continuance of care, Re-evaluation by your physician Discharge Instructions: - Discharge Summary Sheet kb - Dental Pain, [id number] kb - Dental Abscess, [id number] kb Forms: - Medication Reconciliation Form kb - Thank You Letter kb - Antibiotic Education kb - Prescription Opioid Use kb Prescriptions: - Augmentin 875-125 mg Oral Tablet - take 1 tablet by ORAL route every 12 hours for 10 days; 20 tablet; Refills: 0, kb Product Selection Permitted Signatures: Kalani Cano, Juanito Uriostegui MD MD rn Gila Guerrero RN RN
[2021-01-11 10:19] VITALS: BP 132/80; TEMP 98; O2SAT 99
== END 2021-01-11 10:14 | disposition home or self-care (01) ==
LOC: ER 09:51
DX: K04.7 Periapical abscess without sinus (principal)
CPT/HCPCS: 99282

== ENCOUNTER 2021-10-18 10:55 | Emergency (ER) | payer OTHER, SELFPAY ==
[2021-10-18 13:50] LABS: Absolute Lymphocytes (CBC) 2.5 K/uL (0.7-4.9); Hematocrit 38.5 % (36.0-45.0); Lymphocytes % 32.3 % (15.3-44.8); MCV 89.2 fL (80-100); RBC Red Blood Cell Count 4.32 M/uL (3.86-4.86)
[2021-10-18 13:56] LABS: Potassium 3.5 mmol/L (3.5-5.1)
[2021-10-18 15:45] LABS: Urine Blood Negative (Negative); Urine Glucose Negative (Negative); Urine Protein Negative (Negative); Urine Specific Gravity >=1.030 (1.005-1.030)
[2021-10-18] MEDS ORDERED: NA CHLORIDE 0.9% 1,000 ML ONE (16:33)
--- NOTE | 2021-10-18 18:00 | ER ---
Nurse's Notes [facility] Name: Danita Drummond Age: 25 yrs Sex: Female : 1995 Arrival Date: 10/18/2021 Time: 11:01 Bed 25 Private MD: Diagnosis: Abnormal uterine and vaginal bleeding, unspecified;Syncope Presentation: 10/18 11:51 Chief complaint: Patient states: she has been getting dizzy and feeling weak lately, ap3 and reports also fainting. Patient reports having multiple menstrual cycles this month already and also reports now that she is bruising easily. Patient states this has all started the last few weeks when she started having the multiple menstrual cycles. Coronavirus screen: At this time, the client does not indicate any symptoms associated with coronavirus-19. Ebola Screen: No symptoms or risks identified at this time. Initial Sepsis Screen: Does the patient meet any 2 criteria? No. Patient's initial sepsis screen is negative. Does the patient have a suspected source of infection? No. Patient's initial sepsis screen is negative. Risk Assessment: Do you want to hurt yourself or someone else? Patient reports no desire to harm self or others. Onset of symptoms was September 2021. 11:51 Method Of Arrival: Ambulatory ap3 11:51 Acuity: JR 3 ap3 Triage Assessment: 11:57 General: Appears in no apparent distress. Behavior is calm, cooperative. Pain: Denies ap3 pain. Neuro: Reports dizziness, a syncopal episode weakness. Cardiovascular: Patient's skin is warm and dry. Respiratory: Airway is patent Respiratory effort is even, unlabored. : Reports multiple menstrual cycles. 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 - Social history:: Smoking status: Reported history of juuling and/or vaping. Patient uses alcohol, occasionally. Screenin:57 Abuse screen: Denies threats or abuse. Nutritional screening: No deficits noted. ap3 Tuberculosis screening: No symptoms or risk factors identified. Fall Risk. Assessment: 15:47 Reassessment: Patient appears in no apparent distress at this time. Patient and/or jb4 family updated on plan of care and expected duration. Pain level reassessed. Patient is alert, oriented x 3, equal unlabored respirations, skin warm/dry/pink. 17:04 Reassessment: Patient appears in no apparent distress at this time. Patient and/or jb4 family updated on plan of care and expected duration. Pain level reassessed. Patient is alert, oriented x 3, equal unlabored respirations, skin warm/dry/pink. 17:44 Reassessment: Patient appears in no apparent distress at this time. Patient and/or jb4 family updated on plan of care and expected duration. Pain level reassessed. Patient is alert, oriented x 3, equal unlabored respirations, skin warm/dry/pink. 18:20 Reassessment: Patient appears in no apparent distress at this time. Patient and/or jb4 family updated on plan of care and expected duration. Pain level reassessed. Patient is alert, oriented x 3, equal unlabored respirations, skin warm/dry/pink. Vital Signs: 11:51 BP 123 / 86; Pulse 64; Resp 17; Temp 98.7; Pulse Ox 98% ; Weight 49.9 kg; Height 5 ft. ap3 0 in. (152.40 cm); 15:47 BP 111 / 67; Pulse 64; Resp 16; Pulse Ox 100% on R/A; jb4 16:45 BP 103 / 72; Pulse 58; Resp 16; Pulse Ox 100% on R/A; jb4 17:30 BP 107 / 70; Pulse 56; Resp 16; Pulse Ox 100% on R/A; jb4 11:51 Body Mass Index 21.48 (49.90 kg, 152.40 cm) ap3 ED Course: 11:01 Patient arrived in ED. rg4 11:19 Florin Collazo PA is PHCP. jmm 11:19 Juanito Freeman MD is Attending Physician. jmm 11:54 Triage completed. ap3 11:58 Arm band placed on left wrist. ap3 13:41 Inserted saline lock: 20 gauge in left antecubital area, using aseptic technique. Blood oj collected. 15:25 Aren Velez, VICENTE is Primary Nurse. jb4 16:32 D-Dimer Sent. jb4 17:59 Chiquis Pate MD is Referral Physician. [facility] 18:20 Patient has correct armband on for positive identification. jb4 18:20 No provider procedures requiring assistance completed. IV discontinued, intact, jb4 bleeding controlled, No redness/swelling at site. Pressure dressing applied. Administered Medications: 16:32 Drug: NS 0.9% 1000 ml Route: IV; Rate: 1 bolus; Site: left antecubital; jb4 17:30 Follow up: Response: No adverse reaction; IV Status: Completed infusion; IV Intake: jb4 1000ml Medication: 18:20 VIS not applicable for this client. jb4 Intake: 17:30 IV: 1000ml; Total: 1000ml. jb4 Outcome: 18:00 Discharge ordered by . [facility] 18:20 Patient left the ED. jb4 18:20 Discharged to home ambulatory. jb4 18:20 Condition: stable 18:20 Discharge instructions given to patient, Instructed on discharge instructions, follow up and referral plans. Demonstrated understanding of instructions, follow-up care. Signatures: Florin Collazo PA PA jmm Garcia, Rubi rg4 Aren Velez, RN RN jb4 Aurora De León RN RN ap3 [place]
--- NOTE | 2021-10-18 18:00 | EDPHYS ---
Physician Documentation [facility] Name: Danita Drummond Age: 25 yrs Sex: Female : 1995 Arrival Date: 10/18/2021 Time: 11:01 Bed 25 Private MD: ED Physician Juanito Freeman HPI: 10/18 11:29 This 25 yrs old Female presents to ER via Ambulatory with complaints of jmm Weakness. 11:29 The patient presents with vaginal bleeding that is. Onset: The symptoms/episode jmm began/occurred gradually. Modifying factors: The symptoms are alleviated by nothing, the symptoms are aggravated by nothing. This is a 25 year old female with a history of anxiety, depression that presents to the ED with complaints of vaginal bleeding with a syncopal episode yesterday. Patient states feeling dehydrated. Patient denies shortness of breath. 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 - Social history:: Smoking status: Reported history of juuling and/or vaping. Patient uses alcohol, occasionally. Vital Signs: 11:51 BP 123 / 86; Pulse 64; Resp 17; Temp 98.7; Pulse Ox 98% ; Weight 49.9 kg; Height 5 ft. ap3 0 in. (152.40 cm); 15:47 BP 111 / 67; Pulse 64; Resp 16; Pulse Ox 100% on R/A; jb4 16:45 BP 103 / 72; Pulse 58; Resp 16; Pulse Ox 100% on R/A; jb4 17:30 BP 107 / 70; Pulse 56; Resp 16; Pulse Ox 100% on R/A; jb4 11:51 Body Mass Index 21.48 (49.90 kg, 152.40 cm) ap3 MDM: 11:29 Patient medically screened. jmm 17:58 Data reviewed: vital signs, nurses notes. Counseling: I had a detailed discussion with jmrobbie the patient and/or guardian regarding: the historical points, exam findings, and any diagnostic results supporting the discharge/admit diagnosis, lab results, the need for outpatient follow up, to return to the emergency department if symptoms worsen or persist or if there are any questions or concerns that arise at home. ED course: Patient is alert and non toxic in appearance in the ED. H/H normal. VS wnl. patient advised to follow up with pcp and otherwise given strict return precautions. patient understood and agrees with the plan of care. . 10/18 11:32 Order name: Abo/rh Typing; Complete Time: 14:24 [facility] 10/18 11:32 Order name: Basic Metabolic Panel; Complete Time: 13:57 [facility] 10/18 11:32 Order name: CBC with Diff; Complete Time: 13:54 [facility] 10/18 15:45 Order name: Urine Dipstick-Ancillary; Complete Time: 15:56 [facility] 10/18 16:25 Order name: D-Dimer; Complete Time: 16:54 [facility] 10/18 11:32 Order name: IV Saline Lock; Complete Time: 15:40 [facility] 10/18 11:32 Order name: Labs collected and sent; Complete Time: 15:40 [facility] 10/18 11:32 Order name: NPO; Complete Time: 15:40 [facility] 10/18 11:32 Order name: Urine Dipstick-Ancillary (obtain specimen); Complete Time: 15:44 [facility] 10/18 11:33 Order name: EKG - Nurse/Tech; Complete Time: 15:40 [facility] Administered Medications: 16:32 Drug: NS 0.9% 1000 ml Route: IV; Rate: 1 bolus; Site: left antecubital; jb4 17:30 Follow up: Response: No adverse reaction; IV Status: Completed infusion; IV Intake: jb4 1000ml Disposition: 10/19 07:31 Co-signature as Attending Physician, Juanito Freeman MD. rn Disposition Summary: 10/18/21 18:00 Discharge Ordered Location: Home [facility] Condition: Stable [facility] Diagnosis - Abnormal uterine and vaginal bleeding, unspecified jmm - Syncope [facility] Followup: [facility] - With: Chiquis Pate MD - When: 2 - 3 days - Reason: Recheck today's complaints, Continuance of care, Re-evaluation by your physician Discharge Instructions: - Discharge Summary Sheet [facility] - Abnormal Uterine Bleeding [facility] - Syncope [facility] Forms: - Medication Reconciliation Form [facility] - Thank You Letter jmm - Antibiotic Education jmm - Prescription Opioid Use jmm Signatures: Dispatcher [employer] Florin Meléndez PA PA jmm Nieto, Roman, MD MD rn Bryson, James, RN RN jb4 Aurora De León RN RN ap3
[2021-10-18 18:31] VITALS: TEMP 98.7
[2021-10-18 18:33] VITALS: O2SAT 100
[2021-10-18 18:36] VITALS: BP 107/70
--- NOTE | 2021-10-19 08:22 | EKG ---
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
== END 2021-10-18 18:20 | disposition home or self-care (01) ==
LOC: ER 10:55
DX: N93.9 Abnormal uterine and vaginal bleeding, unspecified (principal); R55 Syncope and collapse; R53.1 Weakness
CPT/HCPCS: 93005; 85025; 80048; 36415; 86900; 86901; 85379; 81003; 96360; 99284; J7030